=== PATIENT | male | born 1990 | race Caucasian/White ===

== ENCOUNTER 2024-01-22 10:47 | Emergency (ER) | payer OTHER ==
[~2024-01-22] VITALS: Ht 175.3 cm; Wt 82.6 kg
[2024-01-22] MEDS ORDERED: FLUO20TA28 PO (10:58)
[2024-01-22] MEDS ORDERED: METOCLOPRAMIDE HCL 10 MG TABLET ONE (11:25)
[2024-01-22] MEDS: METOCLOPRAMIDE HCL 10 MG TABLET PO ONE (11:32)
[2024-01-22] MEDS ORDERED: METO-295 PO (12:44)
[2024-01-22 12:47] VITALS: BP 122/80; TEMP 98; O2SAT 99
== END 2024-01-22 12:49 | disposition home or self-care (01) ==
LOC: ER 10:47
DX: F07.81 Postconcussional syndrome (principal); R43.0 Anosmia; Z79.899 Other long term (current) drug therapy
CPT/HCPCS: 70450; A4606; A4663; J8597